=== PATIENT | female | born 1985 | race Caucasian/White ===

== ENCOUNTER 2019-04-13 16:30 | Inpatient (IN) | payer MEDICAID ==
[~2019-04-13] VITALS: Ht 170.2 cm; Wt 170.0 kg
[2019-04-13] MEDS ORDERED: AMPICILLIN 2 GM in SODIUM CHLORIDE 0.9% 100 ML IVPB STA (16:40)
[2019-04-13] MEDS ORDERED: OXYTOCIN 30U/ 0.9% NaCL 500ML 500 ML IV PRN (16:40)
[2019-04-13] MEDS ORDERED: OXYTOCIN 30U/ 0.9% NaCL 500ML 500 ML IV ONE (16:40)
[2019-04-13] MEDS ORDERED: D5%-LACTATED RINGERS 1,000 ML IV SCH (16:40)
[2019-04-13] MEDS ORDERED: METOCLOPRAMIDE 5 MG/ML, 2ML IVPush PRN (17:00)
[2019-04-13] MEDS ORDERED: CALCIUM CARBONATE 500 MG TAB.CHEW PO PRN (17:00)
[2019-04-13] MEDS ORDERED: TERBUTALINE 1 MG/ML, 1ML SQ PRN (17:00)
[2019-04-13] MEDS: LACTATED RINGERS 1,000 ML IV SCH (17:00)
[2019-04-13] MEDS ORDERED: FENTANYL PF 100 MCG/2ML IV PRN (17:00)
[2019-04-13] MEDS ORDERED: ONDANSETRON 2MG/ML, 2ML IVPush PRN (17:00)
[2019-04-13] MEDS ORDERED: SODIUM CITRATE/CITRIC ACID 30 ML UDC PO PRN (17:00)
[2019-04-13] MEDS ORDERED: TERBUTALINE 1 MG/ML, 1ML IVPush PRN (17:00)
[2019-04-13] MEDS ORDERED: MISOPROSTOL 25 MCG TABLET VG PRN (17:00)
[2019-04-13 17:02] LABS: BASOPHILS # (AUTO) 0.04 x10^3/uL (0-0.1); BASOPHILS % (AUTO) 0 % (0-1); EOSINOPHILS # (AUTO) 0.25 x10^3/uL (0-0.4); EOSINOPHILS % (AUTO) 2 % (1-7); LYMPHOCYTES # (AUTO) 1.42 x10^3/uL (1-3.4); LYMPHOCYTES % (AUTO) 12 % (22-44); MD NO; MEAN CORPUSCULAR HEMOGLOBIN 28.9 pg (27.0-34.8); MEAN CORPUSCULAR HGB CONC 32.3 g/dL (32.4-35.8); MEAN CORPUSCULAR VOLUME 89.2 fL (80-100); MEAN PLATELET VOLUME 7.9 fL (7.4-10.4); MONOCYTES # (AUTO) 0.58 x10^3/uL (0.2-0.8); MONOCYTES % (AUTO) 5 % (2-9); NEUTROPHILS # (AUTO) 9.31 x10^3/uL (1.8-6.8); NEUTROPHILS % (AUTO) 80 % (42-75); PLATELET COUNT 311 x10^3/uL (130-400); RED BLOOD COUNT 4.03 x10^6/uL (3.82-5.3); RED CELL DISTRIBUTION WIDTH 16.1 % (9.6-15.2)
[2019-04-13] MEDS ORDERED: NEWBORN KIT ONE (17:18)
[2019-04-13] MEDS ORDERED: MISOPROSTOL 200 MCG TABLET ONE (17:19)
[2019-04-13] MEDS ORDERED: LIDOCAINE 1%, 20ML ONE (17:19)
[2019-04-13] MEDS ORDERED: MISOPROSTOL 25 MCG TABLET ONE (17:19)
[2019-04-13] MEDS ORDERED: OXYTOCIN 30U/ 0.9% NaCL 500ML 500 ML ONE (17:19)
[2019-04-13 19:15] VITALS: BP 134/76
[2019-04-13] MEDS ORDERED: FENTANYL/BUPIV./NS/PF 250 ML EPIDCONT SCH (22:11)
[2019-04-14] MEDS: AMPICILLIN 1 GM in SODIUM CHLORIDE 0.9% 50 ML IVPB SCH ×6 (01:55→18:18)
[2019-04-14] MEDS: LACTATED RINGERS 1,000 ML IVBOLUS PRN ×2 (03:18→15:43)
[2019-04-14] MEDS ORDERED: FENTANYL PF 500 MCG, BUPIVACAINE/PF 0.5%, 30ML 62.5 ML in SODIUM CHLORIDE 0.9% 177.5 ML EPIDCONT SCH ×2 (03:30→16:30)
[2019-04-14] MEDS: LACTATED RINGERS 1,000 ML IV SCH ×2 (12:04→16:47)
[2019-04-14] MEDS ORDERED: FENTANYL PF 100 MCG/2ML ONE (15:04)
[2019-04-14] MEDS: FENTANYL PF 100 MCG/2ML IVPush PRN (15:15)
[2019-04-14] MEDS ORDERED: FENTANYL/BUPIV./NS/PF 250 ML EPIDCONT SCH (16:06)
[2019-04-14] MEDS ORDERED: LACTATED RINGERS 1,000 ML IV SCH (16:06)
[2019-04-14] MEDS ORDERED: BUPIVACAINE 0.25% ONE (16:16)
[2019-04-14] MEDS ORDERED: FENTANYL/BUPIV./NS/PF 250 ML EPIDCONT ONE (16:16)
[2019-04-14] MEDS ORDERED: LACTATED RINGERS 1,000 ML IVBOLUS PRN (16:30)
[2019-04-14] MEDS ORDERED: NALOXONE 0.4 MG/ML, 1ML IVPush PRN (16:30)
[2019-04-14] MEDS ORDERED: EPHEDRINE 50 MG/ML, 1ML IVPush PRN (16:30)
[2019-04-14 19:09] VITALS: BP 128/60
[2019-04-14] MEDS: AMPICILLIN 1 GM in SODIUM CHLORIDE 0.9% 100 ML IVPB SCH (22:00)
[2019-04-15] MEDS: AMPICILLIN 1 GM in SODIUM CHLORIDE 0.9% 100 ML IVPB SCH ×2 (02:04→06:05)
[2019-04-15] MEDS ORDERED: LIDOCAINE/PF 1.5% EPI 1:200K, 10 ML ONE (03:02)
[2019-04-15] MEDS ORDERED: FENTANYL PF 100 MCG/2ML ONE ×2 (03:29→05:02)
[2019-04-15] MEDS: FENTANYL PF 100 MCG/2ML IVPush PRN (03:31)
[2019-04-15] MEDS ORDERED: FENTANYL/BUPIV./NS/PF 250 ML EPIDCONT ONE (06:02)
[2019-04-15] MEDS: LACTATED RINGERS 1,000 ML IV SCH (07:59)
[2019-04-15] MEDS ORDERED: MISOPROSTOL 200 MCG TABLET PR ONE (08:00)
[2019-04-15] MEDS: OXYTOCIN 30U/ 0.9% NaCL 500ML 500 ML IV SCH ×2 (08:18→18:18)
[2019-04-15] MEDS ORDERED: OXYTOCIN 30U/ 0.9% NaCL 500ML 500 ML ONE (08:19)
[2019-04-15] MEDS ORDERED: SIMETHICONE 80 MG CHEW TAB PO PRN (08:30)
[2019-04-15] MEDS: PRENATAL VIT/IRON/FA 1 EACH TABLET PO SCH (09:00)
[2019-04-15] MEDS ORDERED: IBUPROFEN 600 MG TABLET ONE ×2 (09:33→09:35)
[2019-04-15] MEDS: IBUPROFEN 600 MG TABLET PO PRN ×3 (09:36→20:31)
[2019-04-15 11:22] VITALS: BP 124/72
[2019-04-15] MEDS: OXYcodone/APAP 5/325MG TABLET PO PRN ×2 (14:25→19:14)
[2019-04-15 15:41] VITALS: BP 122/68
[2019-04-15 15:50] LABS: MEAN CORPUSCULAR HEMOGLOBIN 29.1 pg (27.0-34.8); MEAN CORPUSCULAR HGB CONC 32.8 g/dL (32.4-35.8); MEAN CORPUSCULAR VOLUME 88.6 fL (80-100); MEAN PLATELET VOLUME 8.1 fL (7.4-10.4); PLATELET COUNT 264 x10^3/uL (130-400); RED BLOOD COUNT 3.43 x10^6/uL (3.82-5.3)
[2019-04-15 16:16] LABS: BASOPHILS # (AUTO) 0.01 x10^3/uL (0-0.1); BASOPHILS % (AUTO) 0 % (0-1); EOSINOPHILS # (AUTO) 0.28 x10^3/uL (0-0.4); EOSINOPHILS % (AUTO) 2 % (1-7); LYMPHOCYTES # (AUTO) 1.24 x10^3/uL (1-3.4); LYMPHOCYTES % (AUTO) 8 % (22-44); MD SCAN; MONOCYTES # (AUTO) 1.19 x10^3/uL (0.2-0.8); MONOCYTES % (AUTO) 7 % (2-9); NEUTROPHILS # (AUTO) 13.86 x10^3/uL (1.8-6.8); NEUTROPHILS % (AUTO) 84 % (42-75)
[2019-04-15 19:05] VITALS: BP 126/77
[2019-04-15] MEDS: DOCUSATE 100 MG CAPSULE PO PRN (19:13)
[2019-04-16] MEDS: OXYcodone/APAP 5/325MG TABLET PO PRN ×5 (00:08→22:11)
[2019-04-16 00:09] VITALS: BP 112/76
[2019-04-16] MEDS: IBUPROFEN 600 MG TABLET PO PRN ×4 (02:34→22:11)
[2019-04-16 03:47] VITALS: BP 101/69
[2019-04-16] MEDS: OXYTOCIN 30U/ 0.9% NaCL 500ML 500 ML IV SCH ×2 (04:18→14:18)
[2019-04-16 07:30] VITALS: BP 102/68
[2019-04-16] MEDS: DOCUSATE 100 MG CAPSULE PO PRN ×2 (08:37→22:12)
[2019-04-16] MEDS: PRENATAL VIT/IRON/FA 1 EACH TABLET PO SCH (09:00)
[2019-04-16] MEDS ORDERED: MEASLES,MUMPS&RUBELLA VACC/PF 0.5 ML SQ-VACC ONE (14:00)
[2019-04-16] MEDS ORDERED: DIPH,PERTUSS(ACELL),TET VAC/PF NC IM-VACC ONE (14:00)
[2019-04-16 20:30] VITALS: BP 116/72
[2019-04-17] MEDS: OXYcodone/APAP 5/325MG TABLET PO PRN ×3 (06:35→16:36)
[2019-04-17] MEDS: IBUPROFEN 600 MG TABLET PO PRN ×2 (06:35→13:59)
[2019-04-17 07:27] VITALS: BP 118/71
[2019-04-17] MEDS: DOCUSATE 100 MG CAPSULE PO PRN (09:48)
[2019-04-17] MEDS: PRENATAL VIT/IRON/FA 1 EACH TABLET PO SCH (09:48)
== END 2019-04-17 18:00 | disposition home or self-care (01) | DRG 807 ==
LOC: LDIP 16:30 → 2NW 04-15 10:00
PROVIDERS: ADMIT Obstetrics & Gynecology; ATTEND Obstetrics & Gynecology
PROC: 10E0XZZ Delivery of Products of Conception, External Approach (ICD-10-PCS; principal; 2019-04-15)
PROC: 10H07YZ Insertion of Other Device into Products of Conception, Via Natural or Artificial Opening (ICD-10-PCS; 2019-04-15)
PROC: 3E0P7VZ Introduction of Hormone into Female Reproductive, Via Natural or Artificial Opening (ICD-10-PCS; 2019-04-15)
PROC: 0HQ9XZZ Repair Perineum Skin, External Approach (ICD-10-PCS; 2019-04-15)
PROC: 3E0R3BZ Introduction of Anesthetic Agent into Spinal Canal, Percutaneous Approach (ICD-10-PCS; 2019-04-15)
PROC: 00HU33Z Insertion of Infusion Device into Spinal Canal, Percutaneous Approach (ICD-10-PCS; 2019-04-15)
PROC: 3E0234Z Introduction of Serum, Toxoid and Vaccine into Muscle, Percutaneous Approach (ICD-10-PCS; 2019-04-16)
PROC: 3E0134Z Introduction of Serum, Toxoid and Vaccine into Subcutaneous Tissue, Percutaneous Approach (ICD-10-PCS; 2019-04-16)
DX: O36.63X0 Maternal care for excessive fetal growth, third trimester, not applicable or unspecified (principal); Z37.0 Single live birth; O99.52 Diseases of the respiratory system complicating childbirth; J45.909 Unspecified asthma, uncomplicated; Z3A.37 37 weeks gestation of pregnancy; O40.3XX0 Polyhydramnios, third trimester, not applicable or unspecified; O99.824 Streptococcus B carrier state complicating childbirth; O70.0 First degree perineal laceration during delivery; Z88.8 Allergy status to other drugs, medicaments and biological substances; Z23 Encounter for immunization
CPT/HCPCS: 36415; 82803; 85025; 86850; 86900; 90715; G0378; J0290; J3010; J3490; J2590; J7120